=== PATIENT | male | born 2000 | race Caucasian/White ===

== ENCOUNTER 2024-03-31 20:07 | Emergency (ER) | payer SELFPAY ==
[2024-03-31] MEDS ORDERED: Triple Antibiotic Oint 1 GM Packet ONE (21:04)
== END 2024-03-31 21:36 | disposition home or self-care (01) ==
LOC: BURERS 20:07
DX: S01.112A Laceration without foreign body of left eyelid and periocular area, initial encounter (principal); S80.212A Abrasion, left knee, initial encounter; S80.211A Abrasion, right knee, initial encounter; F17.220 Nicotine dependence, chewing tobacco, uncomplicated; X58.XXXA Exposure to other specified factors, initial encounter; I10 Essential (primary) hypertension
CPT/HCPCS: 99283